=== PATIENT | female | born 1960 | race African-American/Black ===

== ENCOUNTER 2016-08-30 11:00 | Inpatient (IN) | payer OTHER ==
--- NOTE | ~2016-08-30 | PN ---
Unit #: [id number] #: [id number] Patient: OSMANY EDWARDS [id number] [facility] [address] [place] [address] [id number] I MR#: [id number] NAME: OSMANY EDWARDS ROOM: [facility] Age: 56 Sex: F Admission Date: 08/30/2016 : 1960 Attending Physician: Laverne Pope M.D. Admitting Physician: Laverne Pope M.D. Primary Care Physician: Adela Nieto PROGRESS NOTES DATE OF SERVICE 09/06/2016 DISCUSSION Ms. Edwards is a 56-year-old female with mood disorder who was seen today. Chart was reviewed and case was discussed with staff. She has been anxious, withdrawn, depressed, and rather seclusive to himself. Meanwhile, she has been cooperative with the treatment recommendations and has been taking the medications and tolerating them fairly well with no reported side effects. MENTAL STATUS EXAMINATION Middle-aged female who is casually dressed with fair personal hygiene, appears to be in no acute distress or discomfort. She was awake and alert with impaired attention and concentration. Her mood is anxious and depressed with congruent affect. She reports having suicidal ideation and denies any intent or plan. Her insight and judgment remain significantly impaired. TREATMENT PLAN 1. We will continue her on her current medications and treatment protocol. We will monitor her response to the medications and make further adjustments as needed. 2. We will continue to follow up. Dictated by... Adela Lewis/crystal TD: 09/06/2016 11:58 JOB #: [id number] Unit #: [id number] #: [id number] Patient: OSMANY EDWARDS PROGRESS NOTES Page 1 of 1 X Laverne Pope MD PROGRESS NOTE
--- NOTE | ~2016-08-30 | CO ---
Unit #: [id number] #: [id number] Patient: OSMANY EDWARDS [id number] [place] [address] [id number] I MR#: [id number] NAME: OSMANY EDWARDS ROOM: [facility] Age: 56 Sex: F Admission Date: 08/30/2016 : 1960 Attending Physician: Laverne Pope M.D. Primary Care Physician: Jose Ashton M.D. Consultation Date: 08/31/2016 CONSULTATION REPORT HISTORY OF PRESENT ILLNESS Osmany reports that she was admitted [facility] with elevated Coumadin levels. Per staff report, her INR upon admission there was 14. Prior to discharge, her INR was down to 1.19. She reports that she did not realize she was taking warfarin still. The medication had been stopped after her hip surgery, but somehow she has continued to take it without having any of her levels checked. She had some bleeding and low hemoglobin at [facility]. Those records are currently unavailable. She also has complaints of COPD and typically takes Symbicort at home, however, has not been receiving that here and she would like to have that ordered as well. She also would like to have her pain medication increased to q.6 hours that she reports is how she takes it at home; however, per pharmacy, she is only getting this q.6 hours and that is how she is scheduled here. She has no other complaints. PHYSICAL EXAMINATION CARDIAC: Regular rate and rhythm. No murmur, gallop, or rub. RESPIRATORY: Clear to auscultation bilaterally. ASSESSMENT AND PLAN 1. Coumadin toxicity per report from hospital. INR upon admission was 14 and prior to discharge from [facility] had dropped to 1.19. Unknown hemoglobin due to results unavailable. Please request lab results and all pertinent information from [facility]. We will repeat a CBC and PT/INR in the morning. 2. Chronic obstructive pulmonary disease. We will add Symbicort 160/4.5 mcg inhaled 2 puffs q.12 hours. 3. Chronic pain. The patient is currently being prescribed oxycodone IR 10 mg p.o. q.8 hours p.r.n. for pain. At this time, I see no indication to increase this dose. This is what was verified with [facility] pharmacy. Dictated by... Chaya Herman A.P.R.N. for Adela Zapata/mj TD: 08/31/2016 23:29 JOB #: [id number] Unit #: [id number] #: [id number] Patient: OSMANY EDWARDS CONSULTATION REPORT Page 1 of 1 X CHAYA GARZA APRN CONSULTATION REPORT
--- NOTE | ~2016-08-30 | PN ---
Unit #: [id number] #: [id number] Patient: OSMANY EDWARDS [id number] [facility] [address] [place] [address] [id number] I MR#: [id number] NAME: OSMANY EDWARDS ROOM: [facility] Age: 56 Sex: F Admission Date: 08/30/2016 : 1960 Attending Physician: Laverne Pope M.D. Admitting Physician: Laverne Pope M.D. Primary Care Physician: Adela Nieto PROGRESS NOTES DATE September 09, 2016 DISCUSSION Ms. Edwards is a 56-year-old female, with mood disorder, who was seen today and chart was reviewed and the case was discussed with the staff. The patient has been anxious, withdrawn, and rather seclusive to herself. Meanwhile, she has been cooperative with the treatment recommendations and she has been taking the medications and tolerating them fairly well with no reported side effects. MENTAL STATUS EXAMINATION Middle-aged female, who was casually dressed with fair personal hygiene and appears to be in no acute distress or discomfort. The patient was awake and alert with impaired attention and concentration. Her mood was anxious with a congruent affect. The patient denies any suicidal or homicidal ideations. Her insight and judgment remain slightly impaired. TREATMENT PLAN 1. We will continue her on her current medications and treatment protocol, and will monitor her response to the medications, and make further adjustments as needed. 2. We will continue to followup. Dictated by... Adela Lewis/ramesh TD: 09/10/2016 07:13 JOB #: [id number] Unit #: [id number] #: [id number] Patient: OSMANY EDWARDS PROGRESS NOTES Page 1 of 1 X Laverne Pope MD PROGRESS NOTE
--- NOTE | ~2016-08-30 | PN ---
Unit #: [id number] #: [id number] Patient: OSMANY EDWARDS [id number] [facility] [address] [place] [address] [id number] I MR#: [id number] NAME: OSMANY EDWARDS ROOM: [facility] Age: 56 Sex: F Admission Date: 08/30/2016 : 1960 Attending Physician: Laverne Pope M.D. Admitting Physician: Lavrene Pope M.D. Primary Care Physician: Adela Nieto PROGRESS NOTES DATE September 07, 2016 DISCUSSION Ms. Edwards is a 56-year-old female, who was seen today and chart was reviewed and the case was discussed with the staff. She was up early this morning, stating that her blood pressure has been high and the staff informed me that she has been having increasing elevation in blood pressure that is not responding to the clonidine and another dose of clonidine that was given earlier, as her systolic and diastolic blood pressure was extremely high, at the same time the patient does not appear to be showing much restraints on her diet and has been asking for extra snacks and has been eating high salt and high sugar stuff despite being hypertensive and diabetic. MENTAL STATUS EXAMINATION Middle-aged female, who was casually dressed with fair personal hygiene and appears to be in no acute distress or discomfort. She was awake and alert with impaired attention and concentration. Her mood is anxious and depressed with a congruent affect. Her speech is slow and restricted in content. The patient reports having suicidal ideation but denies any homicidal ideations. Her insight and judgment remain slightly impaired. TREATMENT PLAN 1. We will continue her on her current medications and treatment protocol, and will monitor her response to the medications, and make further adjustments as needed. 2. We will continue to followup. Dictated by... Adela Lewis/ramesh TD: 09/07/2016 11:53 JOB #: [id number] Unit #: [id number] #: [id number] Patient: OSMANY EDWARDS PROGRESS NOTES Page 1 of 1 X Laverne Pope MD PROGRESS NOTE
--- NOTE | ~2016-08-30 | CO ---
Unit #: [id number] #: [id number] Patient: OSMANY EDWARDS [id number] [place] [address] [id number] I MR#: [id number] NAME: OSMANY EDWARDS ROOM: [facility] Age: 56 Sex: F Admission Date: 08/30/2016 : 1960 Attending Physician: Laverne Pope M.D. Primary Care Physician: Jose Ashton M.D. Consultation Date: 09/05/2016 CONSULTATION REPORT SUBJECTIVE Osmany is a 56-year-old with history of high blood pressure, alcohol abuse, and COPD. Since admission, she has developed some pedal edema. She denies any chest pain, irregular heart beats, or shortness of breath. We have been asked to assess and treat. Osmany lives a very sedentary life. Most of her days are she goes from the bed to a wheelchair and is sitting in the wheelchair in the day room most of the day. OBJECTIVE GENERAL: Alert, obese, no apparent distress. VITAL SIGNS: Blood pressure 152/103, 163/107, 166/100; heart rate 94, 82, 95, 107; respirations 16, temperature 98.6. CARDIOVASCULAR: Rate and rhythm is regular. No S3. CHEST: Lungs clear. ABDOMEN: Obese, soft, nontender. EXTREMITIES: 2+ pitting edema up to her knees. ASSESSMENT 1. High blood pressure, not controlled. 2. Dependent edema. PLAN 1. Lasix 20 mg one p.o. b.i.d. x3 days and will reassess at that time. 2. Add Norvasc 5 mg one p.o. daily. Note, blood pressures were reassessed 72 hours after initiation of Norvasc. Pressures were still very elevated. We added Toprol-XL 50 mg daily and hydrochlorothiazide 25 mg one p.o. daily. She is to continue Catapres 0.1 mg b.i.d., and lisinopril 20 mg daily. We will continue to monitor. Dictated by... Linda Orozco P.A.-C. for Adela Zapata/mj TD: 09/09/2016 01:48 JOB #: [id number] Unit #: [id number] #: [id number] Patient: OSMANY EDWARDS CONSULTATION REPORT Page 1 of 1 X Linda Orozco CONSULTATION REPORT
--- NOTE | ~2016-08-30 | PN ---
Unit #: [id number] #: [id number] Patient: OSMANY ROMERO [id number] [facility] [address] [place] [address] [id number] I MR#: [id number] NAME: OSMANY ROMERO ROOM: [facility] Age: 56 Sex: F Admission Date: 08/30/2016 : 1960 Attending Physician: Laverne Pope M.D. Admitting Physician: Laverne Pope M.D. Primary Care Physician: Adela Nieto PROGRESS NOTES DATE OF SERVICE 08/30/2016 DISCUSSION Ms. Romero is a 56-year-old female who was seen today. Chart was reviewed and case was discussed with the staff. She has been anxious, withdrawn, and rather seclusive to herself. Meanwhile, she has been cooperative with the treatment recommendations and has been taking the medications and tolerating them fairly well with no reported side effects. MENTAL STATUS EXAMINATION Middle-aged female who is casually dressed with fair personal hygiene, appears to be in no acute distress or discomfort. She was awake and alert with impaired attention and concentration. Her mood is anxious with congruent affect. She denies any suicidal or homicidal ideations and also denies any auditory or visual hallucinations. Her insight and judgment remain slightly impaired. TREATMENT PLAN 1. We will continue her on her current medications and treatment protocol. We will monitor her response and make further adjustments as needed. 2. We will continue to follow up. Dictated by... Laverne Pope M.D. IAA/bzg TD: 09/04/2016 12:41 JOB #: [id number] Unit #: [id number] #: [id number] Patient: OSMANY ROMERO PROGRESS NOTES Page 1 of 1 X Laverne Pope MD PROGRESS NOTE
--- NOTE | ~2016-08-30 | HP ---
Unit #: [id number] #: [id number] Patient: OSMANY EDWARDS [id number] [place] [address] [id number] MR#: [id number] NAME: OSMANY EDWARDS ROOM: [facility] Age: 56 Sex: F Admission Date: 08/30/2016 : 1960 Attending Physician: Laverne Pope M.D. Admitting Physician: Laverne Pope M.D. Primary Care Physician: Jose Ashton M.D. HISTORY AND PHYSICAL HISTORY OF PRESENT ILLNESS Osmany is a 56-year-old female admitted on 08/30/2016 to [facility] for detox from alcohol. PAST MEDICAL HISTORY 1. COPD. 2. Hypertension. 3. Type 2 diabetes. 4. Obesity. 5. Hyperlipidemia. 6. Spinal stenosis. 7. Chronic hip pain. 8. Chronic pancreatitis. 9. Cirrhosis of the liver. 10. Gout. 11. Hepatitis B. 12. Current bleeding ulcers. 13. Anemia. PAST SURGICAL HISTORY 1. Left hip replacement. 2. Right hip fracture surgical repair with rods and screws. 3. Appendectomy. 4. Cholecystectomy. 5. Left oophorectomy. 6. section. 7. Breast biopsy. 8. Colonoscopy. ALLERGIES No known drug allergies. SOCIAL HISTORY Smokes 1 pack of cigarettes daily. Binge alcohol use. Denies illegal drug use. She is currently single and homeless. FAMILY HISTORY Noncontributory. REVIEW OF SYSTEMS CONSTITUTIONAL: No fever or chills. HEENT: Denies any sore throat, ear pain or runny nose. CARDIOVASCULAR: Denies chest pain, irregular heart rhythm or palpitations. Unit #: [id number] #: [id number] Patient: OSMANY EDWARDS CHEST: Denies shortness of breath or cough. No hemoptysis. GASTROINTESTINAL: Denies nausea, vomiting, diarrhea or chronic constipation. ENDOCRINE: Denies history of increased thirst or urination. No recent significant weight loss or gain. GENITOURINARY: Denies dysuria, frequency, or hematuria. SKIN: Denies any rashes. HEMATOLOGIC: Denies history of increased bleeding or bruising. MUSCULOSKELETAL: Denies any hot, swollen joints. No generalized muscle pain. NEUROLOGIC: Denies problems with vision or speech. No frequent, severe headaches. No numbness, tingling or weakness in any extremities. Denies loss of bladder or bowel control. CURRENT MEDICATIONS 1. Folic acid. 2. Protonix. 3. Doxepin. 4. Docusate. 5. Nadolol. 6. Neurontin. 7. Reglan. 8. Oxycodone. 9. Albuterol nebulizer. PHYSICAL EXAMINATION GENERAL: Alert, oriented, in no acute distress. VITAL SIGNS: Blood pressure 169/97, heart rate 64, respirations 24, temperature 98.0. HEIGHT: 5 feet 5. WEIGHT: 195 pounds. SKIN: Warm and dry without rash or lesion. HEENT: Normocephalic. TMs not viewed. Oral and nasal passages clear. Conjunctivae clear. PERRLA. EOMs intact. NECK: Supple without lymphadenopathy or thyromegaly. HEART: Regular rate and rhythm without murmur. LUNGS: Clear. ABDOMEN: Soft, nontender, without masses or hepatosplenomegaly. : Not done. EXTREMITIES: No evidence of cyanosis, clubbing or edema. Moves all without focal deficit. NEUROLOGICAL: Grossly within normal limits. Cranial Nerves: II: Visual dejesus are intact. III, IV AND : Extraocular movements are intact. Pupils are equal, round and reactive to light. V: Facial sensation is grossly normal. VII: Facial movements and expression are normal. VIII: Auditory acuity grossly intact. IX, X: Uvula is midline. Phonation is normal. XI: Patient shrugs shoulders and turns head normally. XII: Tongue protrudes in the midline. Sensory and Motor Function: Sensory and motor sensation is grossly normal. Motor: moves all extremities well. Coordination: Gait is normal. Deep Tendon Reflexes: Intact. IMPRESSION 1. Psychiatric admission. 2. Chronic obstructive pulmonary disease. 3. Hypertension. 4. Type 2 diabetes. Unit #: [id number] #: [id number] Patient: OSMANY EDWARDS 5. Obesity. 6. Hyperlipidemia. 7. Spinal stenosis. 8. Chronic hip pain. 9. Hepatitis B. 10. Cirrhosis of the liver. 11. Chronic pancreatitis. 12. Gout. 13. Current bleeding ulcers. 14. Chronic anemia. RECOMMENDATIONS PSYCHIATRIC: Per psychiatrist. MEDICAL: No contraindications to participate in facility's activities. MEDICAL PROGNOSIS Good. MEDICAL CONDITION Stable. Dictated by... Zach Evangelista/krystyna TD: 08/31/2016 17:28 JOB #: [id number] HISTORY AND PHYSICAL Page 1 of 1 X RENATA GARZA APRN HISTORY AND PHYSICAL
--- NOTE | ~2016-08-30 | PA ---
Unit #: [id number] #: [id number] Patient: OSMANY EDWARDS [id number] [facility] [address] [place] [address] [id number] I MR#: [id number] NAME: OSMANY EDWARDS ROOM: [facility] Age: 56 Sex: F Admission Date: 08/30/2016 : 1960 Date of Assessment: 08/30/2016 Attending Physician: Laverne Pope M.D. Admitting Physician: Laverne Poep M.D. Primary Care Physician: Jose Ashton M.D. PSYCHIATRIC ASSESSMENT DATE OF SERVICE 08/30/2016. IDENTIFYING DATA Ms. Edwards is a 56-year-old single female, who is a resident of [place], [place], and is very well known to us from previous multiple encounters and once again presented back to us from [facility], where she came into the ER due to chest pain and blood in her stool. CHIEF COMPLAINT "I'm depressed and have issues with alcohol." HISTORY OF PRESENT ILLNESS Ms. Edwards is a 56-year-old female, who initially came to the hospital with chest pain and once she was cleared and was ready to be discharged, she informed staff that she is depressed and she has issues with alcohol and that she has intense anxiety and thinks about killing herself and stated that she has considered slitting her wrist and reports that she drinks a fifth or a pint daily and reports that she has been drinking at that level for the past 90 days. However, interestingly, she did not have any withdrawal symptoms in the emergency room and her blood alcohol level was zero and did appear to be manipulating the system and does have a history of such behavior in the past. However, she was exhibiting significant depression and was voicing active suicidal thoughts, intent, and plan and as such, recommendation for inpatient level of care for safety and stabilization was made and the patient was transferred to us. SUBSTANCE ABUSE HISTORY The patient reports history of alcohol dependence and has been drinking since she was 17 years old and reports currently drinking a fifth to a pint of gin on daily basis. The patient denies any other drug abuse. PAST PSYCHIATRIC HISTORY The patient has had history of numerous and multiple inpatient psychiatric hospitalizations for chemical dependency treatment and psychiatric treatment all over the [facility] and has been into different facilities including [facility], [facility], [facility], [facility], [facility], and [facility], and has history of poor compliance with any treatment recommendations outside of the hospital. Once again has not been compliant with any treatment recommendation and has not seeing a psychiatrist, and is not taking any psychotropic medications. Unit #: [id number] #: [id number] Patient: OSMANY EDWARDS PAST MEDICAL HISTORY The patient's medical history is significant for COPD, diabetes mellitus. PERSONAL AND SOCIAL HISTORY A 56-year-old female, who reports that she is single, unemployed, and lives alone, and has poor social support system. MENTAL STATUS EXAMINATION Middle-aged female, who was casually dressed with fair personal hygiene, appears to be in no acute distress or discomfort. She was awake and alert with impaired attention and concentration. Her mood was anxious with a congruent affect. Her speech was slow and restricted in content. Her thought processes were disorganized with some looseness of associations and flight of ideas. Her insight and judgment remain significantly impaired. DIAGNOSTIC IMPRESSION Psychiatric: Major depressive disorder, recurrent, moderate, without psychotic features; alcohol dependence, moderate. Medical: Chronic obstructive pulmonary disease, diabetes mellitus, alcoholic hepatitis. Stressors: Moderate psychosocial stressors. TREATMENT PLAN 1. The patient has presented with history of mood disorder and substance abuse and has been decompensating and will need inpatient hospitalization for safety and stabilization. We will start her back on her home medications. We will adjust the medications and monitor response. 2. Supportive therapy was provided to the patient. 3. Safe, structured, and nourishing environment will be reported. ESTIMATED LENGTH OF STAY 5 to 7 days. ABILITY TO HELP SELF Limited. WILLINGNESS TO HELP SELF The patient appears to be willing to help self. STRENGTHS 1. Communicative. 2. Cooperative. PROBLEMS 1. Chronic dysphoric symptoms. 2. Chronic chemical dependency. 3. Poor social support system. DISCHARGE CRITERIA This will be contingent upon the patient's ability to show resolution of her depression (1) Dictated by... Unit #: [id number] #: [id number] Patient: OSMANY EDWARDS Adela Lewis/mj TD: 08/31/2016 07:03 JOB #: [id number] PSYCHIATRIC ASSESSMENT Page 1 of 1 X Laverne Pope MD PSYCHIATRIC ASSESSMENT
--- NOTE | ~2016-08-30 | PN ---
Unit #: [id number] #: [id number] Patient: OSMANY ROMERO [id number] [facility] [address] [place] [address] [id number] I MR#: [id number] NAME: OSMANY ROMERO ROOM: [facility] Age: 56 Sex: F Admission Date: 08/30/2016 : 1960 Attending Physician: Laverne Pope M.D. Admitting Physician: Laverne Pope M.D. Primary Care Physician: Adela Nieto PROGRESS NOTES DATE 09/08/2016 DISCUSSION Ms. Romero is a 56-year-old female who was seen today and chart was reviewed and case was discussed with the staff. She has been anxious, withdrawn though has not shown any agitation, irritability or behavioral problems and has been cooperative with treatment recommendations and taking medications and tolerating them fairly well with no reported side effects. MENTAL STATUS EXAMINATION Middle-aged female who was casually dressed with fair personal hygiene and appears to be in no acute distress or discomfort. She was awake and alert with impaired attention and concentration. Her mood was anxious with congruent affect. Her thought processes were disorganized with some looseness of associations. Her insight and judgement remains significantly impaired. TREATMENT PLAN 1. Will continue on current medications and treatment protocol. Will monitor her response to the medications and make further adjustments as needed. 2. Will continue to follow up. Dictated by... Laverne Pope M.D. IAA/krystyna TD: 09/08/2016 16:38 JOB #: [id number] Unit #: [id number] #: [id number] Patient: OSMANY ROMERO PROGRESS NOTES Page 1 of 1 X Laverne Pope MD PROGRESS NOTE
--- NOTE | ~2016-08-30 | CO ---
Unit #: [id number] #: [id number] Patient: OSMANY EDWARDS [id number] [place] [address] [id number] I MR#: [id number] NAME: OSMANY EDWARDS ROOM: [facility] Age: 56 Sex: F Admission Date: 08/30/2016 : 1960 Attending Physician: Laverne Pope M.D. Primary Care Physician: Jose Ashton M.D. Consultation Date: 09/01/2016 CONSULTATION REPORT HISTORY OF PRESENT ILLNESS Osmany reports that she recently had a hip replacement in June and she has been doing in physical therapy at home. Here, she has an unsteady gait and has been in a wheelchair; however, she would prefer a walker so that she continues to use her hip and progress in her rehab. She also has been itching and would like Benadryl, also has been having some dryness in her eyes. She reports at home, she ambulates with a walker or a cane and does take Benadryl regularly which does not cause her to be tired. She has no other complaints. PHYSICAL EXAMINATION CARDIAC: Regular rate and rhythm. No murmurs, gallops, or rubs. RESPIRATORY: Clear to auscultation bilaterally. MUSCULOSKELETAL: Altered gait due to left hip replacement and right hip injury. ASSESSMENT AND PLAN 1. Left hip replacement. Please provide walker for Osmany to use when ambulating on the unit. 2. Dry itchy skin. We will add Benadryl 25 mg p.o. q.6 hours p.r.n. for itching. 3. Dry eyes. Please provide with artificial tear drops, one drop per eye b.i.d. Dictated by... Chaya Herman A.P.R.N. for Adela Zapata/mj TD: 09/01/2016 23:45 JOB #: [id number] Unit #: [id number] #: [id number] Patient: OSMANY EDWARDS CONSULTATION REPORT Page 1 of 1 X CHAYA GARZA APRN CONSULTATION REPORT
--- NOTE | ~2016-08-30 | PN ---
Unit #: [id number] #: [id number] Patient: OSMANY EDWARDS [id number] [facility] [address] [place] [address] [id number] MR#: [id number] NAME: OSMANY EDWARDS ROOM: [facility] Age: 56 Sex: F Admission Date: 08/30/2016 : 1960 Attending Physician: Laverne Pope M.D. Admitting Physician: Laverne Pope M.D. Primary Care Physician: Adela Nieto PROGRESS NOTES DATE 08/31/2016 DISCUSSION Ms. Edwards is a 56-year-old female who was seen today and chart was reviewed and case was discussed with the staff. She has been anxious, restless, withdrawn, unkempt, disheveled and is distress and discomfort and has been and reports not feeling good and has been complaining of persistent depression, lack of sleep and feelings of hopelessness and helplessness. Meanwhile, she has been taking medications and tolerating them fairly well with no reported side effects. MENTAL STATUS EXAMINATION Middle-aged female who was casually dressed with fair personal hygiene and appears to be in no acute distress or discomfort. She was awake and alert with intact orientation. Her mood was anxious and depressed with a congruent affect. She denies any suicidal or homicidal ideation and also denies any auditory or visual hallucinations. Her insight and judgement remains slightly impaired. TREATMENT PLAN 1. Will continue on current medications and treatment protocol and will monitor her response to medications and make further adjustments as needed. 2. Will continue to follow up. Dictated by... Adela Lewis/krystyna TD: 08/31/2016 15:20 JOB #: [id number] Unit #: [id number] #: [id number] Patient: OSMANY EDWARDS PROGRESS NOTES Page 1 of 1 X Laverne Pope MD PROGRESS NOTE
--- NOTE | ~2016-08-30 | PN ---
Unit #: [id number] #: [id number] Patient: OSMANY EDWARDS [id number] [facility] [address] [place] [address] [id number] MR#: [id number] NAME: OSMANY EDWARDS ROOM: [facility] Age: 56 Sex: F Admission Date: 08/30/2016 : 1960 Attending Physician: Laverne Pope M.D. Admitting Physician: Laverne Pope M.D. Primary Care Physician: Adela Nieto PROGRESS NOTES DATE 09/02/2016 DISCUSSION Ms. Edwards is a 56-year-old female who was seen today and chart was reviewed and case was discussed with the staff. She has been anxious, withdrawn and rather seclusive to herself. Meanwhile, she has been cooperative with treatment recommendations as she has been taking the medications and tolerating them fairly well with no reported side effects. MENTAL STATUS EXAMINATION Middle-aged female who was casually dressed with fair personal hygiene, appears to be in no acute distress or discomfort. She was awake and alert on interaction with intact orientation. Her mood was anxious with congruent affect. She denies any suicidal or homicidal ideations. Her insight and judgement remains slightly impaired. TREATMENT PLAN 1. We will continue her on her current medications and treatment protocol. We will monitor her response to the medication and make further adjustments as needed. 2. We will continue to follow up. Dictated by... Adela Lewis/idalia TD: 09/02/2016 22:41 JOB #: [id number] Unit #: [id number] #: [id number] Patient: OSMANY EDWARDS PROGRESS NOTES Page 1 of 1 X Laverne Pope MD X PROGRESS NOTE
--- NOTE | ~2016-08-30 | PN ---
Unit #: [id number] #: [id number] Patient: OSMANY EDWARDS [id number] [facility] [address] [place] [address] [id number] MR#: [id number] NAME: OSMANY EDWARDS ROOM: [facility] Age: 56 Sex: F Admission Date: 08/30/2016 : 1960 Attending Physician: Laverne Pope M.D. Admitting Physician: Laverne Pope M.D. Primary Care Physician: Adela Nieto PROGRESS NOTES DATE September 05, 2016 DISCUSSION Ms. Edwards is a 56-year-old female, who was seen today and chart was reviewed and the case was discussed with the staff. The patient has been anxious, withdrawn, depressed, and rather seclusive to herself. Meanwhile, she has been cooperative with the treatment recommendations and she has been taking the medications and tolerating them fairly well with no reported side effects. MENTAL STATUS EXAMINATION Middle-aged female, who was casually dressed with fair personal hygiene and appears to be in no acute distress or discomfort. The patient was awake with impaired attention and concentration. Her mood was anxious with a congruent affect. the patient denies any suicidal or homicidal ideations. Her insight and judgment remain slightly impaired. TREATMENT PLAN 1. We will continue her on her current medications and treatment protocol, and will monitor her response to the medications, and make further adjustments as needed. 2. We will continue to followup. Dictated by... Adela Lewis/ramesh TD: 09/05/2016 11:12 JOB #: [id number] Unit #: [id number] #: [id number] Patient: OSMANY EDWARDS PROGRESS NOTES Page 1 of 1 X Laverne Pope MD PROGRESS NOTE
--- NOTE | ~2016-08-30 | PN ---
Unit #: [id number] #: [id number] Patient: OSMANY EDWARDS [id number] [facility] [address] [place] [address] [id number] I MR#: [id number] NAME: OSMANY EDWARDS ROOM: [facility] Age: 56 Sex: F Admission Date: 08/30/2016 : 1960 Attending Physician: Laverne Pope M.D. Admitting Physician: Laverne Pope M.D. Primary Care Physician: Adela Nieto PROGRESS NOTES DATE September 03, 2016 DISCUSSION Ms. Edwards is a 56-year-old female, who was seen today and chart was reviewed and the case was discussed with the staff. She has been anxious, withdrawn, but has not shown any agitation, irritability, and has been cooperative with the treatment recommendations and she has been taking the medications, and tolerating them fairly well with no reported side effects. MENTAL STATUS EXAMINATION Middle-aged female, who was casually dressed with fair personal hygiene and appears to be in no acute distress or discomfort. She was awake and alert on interaction with intact orientation. Her mood was anxious with a congruent affect. The patient denies any suicidal or homicidal ideations. Her insight and judgment remain slightly impaired. TREATMENT PLAN 1. We will continue her on her current medications and treatment protocol, and will monitor her response to the medications, and make further adjustments as needed. 2. We will continue to followup. Dictated by... Adela Lewis/ramesh TD: 09/03/2016 10:44 JOB #: [id number] Unit #: [id number] #: [id number] Patient: OSMANY EDWARDS PROGRESS NOTES Page 1 of 1 X Laverne Pope MD X PROGRESS NOTE
--- NOTE | ~2016-08-30 | DS ---
Unit #: [id number] #: [id number] Patient: OSMANY EDWARDS [id number] [facility] [address] [place] [address] [id number] MR#: [id number] NAME: OSMANY EDWARDS ROOM: 81 Age: 56 Sex: F Admission Date: 08/30/2016 : 1960 Discharge Date: 09/10/2016 Attending Physician: Laverne Pope M.D. Primary Care Physician: Jose Ashton M.D. DISCHARGE SUMMARY IDENTIFYING DATA Ms. Edwards is a 56-year-old -[place] female, who is a resident of [place], [place], and is known to us from previous encounter, was self-referred to the hospital. DISCHARGE DIAGNOSES Psychiatric: Major depressive disorder, recurrent, moderate, without psychotic features; alcohol dependence, moderate. Medical: Diabetes mellitus, hypertension, COPD, dyslipidemia, spinal stenosis, chronic pain, cirrhosis of the liver, gout, and hepatitis B. Stressors: Moderate psychosocial stressors. HISTORY OF PRESENT ILLNESS Ms. Edwards is a 56-year-old female, who initially came to the hospital with chest pain and once she was cleared and was ready to be discharged, she informed staff that she is depressed and she has issues with alcohol and that she has intense anxiety and thinks about killing herself and stated that she has considered slitting her wrist and reports that she drinks a fifth or a pint daily and reports that she has been drinking at that level for the past 90 days. However, interestingly, she did not have any withdrawal symptoms in the emergency room and her blood alcohol level was zero and did appear to be manipulating the system and does have a history of such behavior in the past. However, she was exhibiting significant depression and was voicing active suicidal thoughts, intent, and plan and as such, recommendation for inpatient level of care for safety and stabilization was made and the patient was transferred to us. PAST PSYCHIATRIC HISTORY The patient has had history of numerous and multiple inpatient psychiatric hospitalizations for chemical dependency treatment and psychiatric treatment all over the town and has been into different facilities including [facility], [facility], [facility], [facility], and [facility], and has history of poor compliance with any treatment recommendations outside of the hospital. Once again has not been compliant with any treatment recommendation and has not seeing a psychiatrist, and is not taking any psychotropic medications. PAST MEDICAL HISTORY The patient's medical history is significant for COPD, diabetes mellitus. HOSPITAL COURSE Unit #: [id number] #: [id number] Patient: OSMANY EDWARDS The patient was admitted to the adult psychiatric care unit at [facility] and was oriented to the hospital environment. Routine p.r.n. medications were initiated, and she was started back on her home medications. The patient has been noncompliant with medications. She was taking the medications regularly and was tolerating them fairly well, though was complaining of persistent depressive symptoms and as such, had a rather complicated course of illness, however, she was able to show a fairly decent and therapeutic response with improvement in depression and anxiety and was denying any further suicidal ideations and was not seem to be danger to self or anyone else, and as such, it was decided that she will be discharged home. We will continue with treatment on an outpatient basis. DISCHARGE MEDICATIONS 1. Seroquel 200 mg at bedtime for depression. 2. Remeron 7.5 mg at bedtime for depression. 3. Doxepin 100 mg at bedtime for sleep. 4. Norvasc 5 mg in the morning for hypertension. 5. Oretic 25 mg a day for hypertension. 6. Lasix 20 mg a day for hypertension. 7. Toprol-XL 100 mg in the morning for hypertension. DISCHARGE CONDITION Stable. PROGNOSIS Fair. Dictated by... Adela Lewis/mj TD: 09/10/2016 15:43 JOB #: [id number] DISCHARGE SUMMARY Page 1 of 1 X Laverne Pope MD X DISCHARGE SUMMARY
[~2016-08-30 11:00] MED LIST: ALPRAZOLAM PO; APAP325 M1 PO; ASACOL400 MG PO; BENTYL10 M1 PO; CATAPRES0.1 MG PO; CELEXA PO; CENTURY CARDIO1 EACH PO; CLONAZEPAM0.5 MG PO; CREON DR 24,001 EACH PO; DOXEPIN HCL100 MG PO; DOXEPIN HCL50 MG PO; FOLIC ACID1 MG PO; GABAPENTIN800 MG PO; HUMALOG100 U/ML SUBQ; HUMULIN 70100 UNIT/1 SQ; HUMULIN 70100 UNIT/1 SUBQ; HUMULIN 70100 UNITS/ SUBQ; HYDROCODON-ACE1 EAC5 PO; HYDROCODONE-A1 UDTA2 PO; HYDROCODONE-APA1 T54 PO; HYDROCODONE/APA1 T16 PO; IBUPROFEN800 MG PO; IPRAT-ALBUT 0.5-3 ML IH; KLONOPIN0.5 MG PO; KRISTALOSE20 G/PK1 PO; LASIX20 MG PO; LEVEMIR SUBQ; LEVEMIR100 UNITS/ SUBQ; LIBRIUM25 M1 PO; LISINOPRIL20 MG PO; LOPRESSOR PO; LORTAB 10-3251 EACH PO; LORTAB 7.5-5001 TAB PO; LOTREL 10-20 MG1 CAP PO; LOTREL PO; MAG-OX 400400 MG PO; METFORMIN HCL500 M1 PO; METOPROLOL TAR25 MG PO; NADOLOL40 MG PO; NEURONTIN800 MG DOB; NEURONTIN800 MG PO; NICOTINE TRANSD14 MG TD; NORCO 10/325 TA1 TAB PO; NORCO 10/3251 TAB PO; OMEPRAZOLE20 M2 PO; ONE DAILY1 TA1 PO; PROTONIX PO; PROTONIX20 MG PO; QUETIAPINE FUM400 MG PO; REMERON15 MG PO; SEROQUEL PO; SEROQUEL400 MG PO; THERAPEUTIC-M1 EAC2 PO; THIAMINE HCL100 M1 PO; TRAZODONE HCL100 MG PO; XANAX0.5 MG PO; [UNRECOGNIZED DRUG - OTHER]
[2016-08-31 10:53] LABS: URINE APPEARANCE CLEAR; URINE BILIRUBIN NEG (NEG); URINE BLOOD NEG (NEG); URINE COLOR YELLOW; URINE GLUCOSE NEG (NEG); URINE KETONE NEG (NEG); URINE LEUKOCYTE ESTERASE NEG (NEG); URINE NITRATE NEG (NEG); URINE PROTEIN NEG (NEG)
[2016-08-31 11:08] LABS: AMPHETAMINE NEG (NEG); BARBITURATES NEG (NEG); BENZODIAZEPINES POS (NEG); COCAINE NEG (NEG); MARIJUANA NEG (NEG); OPIATES NEG (NEG); TRICYCLIC ANTIDEPRESSANTS POS (NEG); U METHADONE NEG (NEG)
[2016-09-07 10:20] LABS: BUN/CREATININE RATIO 21.42; CALCIUM SERUM 9.1 mg/dL (8.4-10.2); CREATININE SERUM 0.7 mg/dL (0.6-1.4); GLOM FILT RATE Estimated 111.5 mL/min (>60); POTASSIUM 4.7 mmol/L (3.5-5.1)
== END 2016-09-10 10:40 | disposition home or self-care (01) | DRG 885 ==
LOC: P1E 16:42
PROVIDERS: Physician Assistant Medical; Psychiatry & Neurology Psychiatry
PROC: HZ2ZZZZ Detoxification Services for Substance Abuse Treatment (ICD-10-PCS; principal; 2016-08-31)
DX: F33.1 Major depressive disorder, recurrent, moderate (principal); K74.60 Unspecified cirrhosis of liver; B19.10 Unspecified viral hepatitis B without hepatic coma; F10.20 Alcohol dependence, uncomplicated; E11.9 Type 2 diabetes mellitus without complications; I10 Essential (primary) hypertension; J44.9 Chronic obstructive pulmonary disease, unspecified; E78.5 Hyperlipidemia, unspecified; M48.00 Spinal stenosis, site unspecified; G89.29 Other chronic pain; M10.9 Gout, unspecified; R60.9 Edema, unspecified; Z96.642 Presence of left artificial hip joint; H04.123 Dry eye syndrome of bilateral lacrimal glands; L85.3 Xerosis cutis
CPT/HCPCS: 80048; 80307; 81003; 82947

== ENCOUNTER 2016-09-26 21:00 | Inpatient (IN) | payer OTHER ==
[~2016-09-26] VITALS: Ht 165.1 cm; Wt 81.6 kg
--- NOTE | ~2016-09-26 | PN ---
Unit #: [id number] #: [id number] Patient: OSMANY EDWARDS [id number] [facility] [address] [place] [address] [id number] I MR#: [id number] NAME: OSMANY EDWARDS ROOM: [facility] Age: 56 Sex: F Admission Date: 09/27/2016 : 1960 Attending Physician: Laverne Pope M.D. Admitting Physician: Laverne Pope M.D. Primary Care Physician: Adela Nieto PROGRESS NOTES DATE OF SERVICE: 09/30/2016 SUBJECTIVE Ms. Edwards is a 56-year-old white female, who was seen today and chart was reviewed, and case was discussed with the staff. She has been anxious, withdrawn, depressed, and rather seclusive to herself. Meanwhile, she has been cooperative with treatment recommendations and has been taking the medications and tolerating them fairly well with no reported side effects. MENTAL STATUS EXAMINATION Middle-aged female, who was casually dressed with fair personal hygiene, appears to be in no acute distress or discomfort. She was awake and alert with impaired attention and concentration. Her mood was anxious with a congruent affect. She denies any suicidal or homicidal ideations. Her insight and judgment remain slightly impaired. TREATMENT PLAN 1. We will continue on her current medications and treatment protocol. We will monitor her response to the medications and make further adjustments as needed. 2. We will continue to follow up. Dictated by... Adela Lewis/mj TD: 09/30/2016 13:52 JOB #: [id number] [facility] PROGRESS NOTES Page 1 of 1 X Laverne Pope MD PROGRESS NOTE
--- NOTE | ~2016-09-26 | PA ---
Unit #: [id number] #: [id number] Patient: OSMANY ROMERO [id number] [facility] [address] [place] [address] [id number] I MR#: [id number] NAME: OSMANY ROMERO ROOM: [facility] Age: 56 Sex: F Admission Date: 09/27/2016 : 1960 Date of Assessment: 09/27/2016 Attending Physician: Laverne Pope M.D. Admitting Physician: Laverne Pope M.D. Primary Care Physician: Jose Ashton M.D. PSYCHIATRIC ASSESSMENT DATE OF SERVICE 09/27/2016. IDENTIFYING DATA Ms. Romero is a 56-year-old single disabled female, who is very well known to us from previous multiple encounters and was just discharged from my care 2-1/2 weeks ago and now brought herself back to the hospital on a voluntary basis. CHIEF COMPLAINT "I'm feeling suicidal, I'm thinking about overdosing or cutting my wrist." HISTORY OF PRESENT ILLNESS Ms. Romero is a 56-year-old female with history of mood disorder and alcohol dependence, who was self-referred to the hospital reporting that she has been depressed and has been having suicidal thoughts and has been thinking about overdosing or cutting her wrist and reports that she has been drinking a fifth of liquor on a daily basis and that when she drinks, she starts thinking crazy and just wants to give up and reports that she wants to detox and wants to give up and does report increasing depression, anxiety, feelings of hopelessness and helplessness, and suicidal ideations and as such, a recommendation for inpatient level of care for safety and stabilization was made and the patient was transferred to us. SUBSTANCE ABUSE HISTORY The patient reports long history of alcohol dependence stating that she has been drinking ever since she was 17 years old, and currently, has been drinking a fifth of alcohol on a daily basis and denies any other substance abuse issues. PAST PSYCHIATRIC HISTORY The patient has a history of multiple and numerous inpatient psychiatric hospitalizations across different facilities including Our , [facility], [facility], [facility], [facility], and [facility] and has been diagnosed and treated for mood disorder and substance abuse and has history of poor compliance with outpatient treatment recommendation and she has not been seeing a psychiatrist and is not taking any psychotropic medications. PAST MEDICAL HISTORY The patient's medical history is significant for hypertension and COPD. Unit #: [id number] #: [id number] Patient: OSMANY ROMERO ALLERGIES No known medication allergies. PERSONAL AND SOCIAL HISTORY A 56-year-old female, who reports that she is single, unemployed, and lives with her family and has poor social support system. MENTAL STATUS EXAMINATION Middle-aged female, who was casually dressed with fair personal hygiene, appears to be in no acute distress or discomfort. She was awake and alert with impaired attention and concentration. Her mood was anxious and depressed with a congruent affect. Her speech was slow and goal directed. She reports having suicidal ideations, but denies any homicidal ideations and also denies any auditory or visual hallucinations. Her insight and judgment remain significantly impaired. DIAGNOSTIC IMPRESSION Psychiatric: Major depressive disorder, recurrent, moderate, without psychotic features and alcohol dependence, moderate. Medical: Hypertension, chronic obstructive pulmonary disease, and diabetes mellitus. Stressors: Moderate psychosocial stressors. TREATMENT PLAN 1. The patient has presented with a history of mood disorder and substance abuse and has been decompensating and will need inpatient hospitalization for safety and stabilization. We will start her back on her home medications. We will adjust the medications and monitor response. 2. Supportive therapy was provided to the patient. 3. Safe, structured, and nourishing environment will be provided. ESTIMATED LENGTH OF STAY 4 to 5 days. ABILITY TO HELP SELF Limited. WILLINGNESS TO HELP SELF The patient appears to be willing to help self. STRENGTHS 1. Communicative. 2. Cooperative. PROBLEMS 1. Chronic dysphoric symptoms. 2. Poor social support system. DISCHARGE CRITERIA This will be contingent upon the patient's ability to show resolution of her depression and anxiety and her ability to stay safe to herself, particularly after discharge from the hospital. Dictated by... Laverne Pope M.D. Unit #: [id number] #: [id number] Patient: OSMANY ROMERO IAA/modl TD: 09/27/2016 14:12 JOB #: [id number] PSYCHIATRIC ASSESSMENT Page 1 of 1 X Laverne Pope MD X PSYCHIATRIC ASSESSMENT
--- NOTE | ~2016-09-26 | PN ---
Unit #: [id number] #: [id number] Patient: OSMANY EDWARDS [id number] [facility] [address] [place] [address] [id number] I MR#: [id number] NAME: OSMANY EDWARDS ROOM: 80 Age: 56 Sex: F Admission Date: 09/27/2016 : 1960 Attending Physician: Laverne Pope M.D. Admitting Physician: Laverne Pope M.D. Primary Care Physician: Adela Nieto PROGRESS NOTES DATE OF SERVICE: 09/29/2016 SUBJECTIVE Ms. Edwards is a 56-year-old female who was seen today and chart was reviewed, and case was discussed with the staff. She remains anxious, withdrawn, depressed, and rather seclusive to herself. Meanwhile, she has been cooperative with treatment recommendations and has been taking medications and tolerating them fairly well with no reported side effects. MENTAL STATUS EXAMINATION Middle-aged female who was casually dressed with fair personal hygiene, appears to be in no acute distress or discomfort. She was awake and alert on interaction with intact orientation. Her mood was anxious and depressed with a congruent affect. Her speech was slow and restricted in content. She reports having suicidal ideations, but denies any homicidal ideations. Her insight and judgment remain significantly impaired. TREATMENT PLAN 1. We will continue her current medications and treatment protocol. We will monitor her response to medications and make further adjustments as needed. 2. We will continue to follow up. Dictated by... Adela Lewis/mj TD: 09/29/2016 16:04 JOB #: [id number] Unit #: [id number] #: [id number] Patient: OSMANY EDWARDS PROGRESS NOTES Page 1 of 1 X Laverne Pope MD PROGRESS NOTE
--- NOTE | ~2016-09-26 | PN ---
Unit #: [id number] #: [id number] Patient: OSMANY EDWARDS [id number] [facility] [address] [place] [address] [id number] MR#: [id number] NAME: OSMANY EDWARDS ROOM: [facility] Age: 56 Sex: F Admission Date: 09/27/2016 : 1960 Attending Physician: Laverne Pope M.D. Admitting Physician: Laverne Pope M.D. Primary Care Physician: Adela Nieto PROGRESS NOTES DATE OF SERVICE: 10/01/2016 SUBJECTIVE Ms. Edwards is a 56-year-old female, who was seen today and chart was reviewed, and case was discussed with the staff. She has been anxious, withdrawn, and rather seclusive to herself. Meanwhile, she has been cooperative with treatment recommendations and has been taking the medications and tolerating them fairly well. MENTAL STATUS EXAMINATION Middle-aged female who was casually dressed with fair personal hygiene, appears to be in no acute distress or discomfort. She was awake and alert with impaired attention and concentration. Her mood was anxious and depressed with a congruent affect. Her speech was slow and goal directed. She denies any suicidal or homicidal ideations. Her insight and judgment remain slightly impaired. TREATMENT PLAN 1. We will continue on her current medications and treatment protocol. We will monitor her response to the medications and make further adjustments as needed. 2. We will continue to follow up. Dictated by... Adela Lewis/mj TD: 10/01/2016 23:35 [facility] #: [id number] [facility] Page 1 of 1 X Laverne Pope MD X PROGRESS NOTE
--- NOTE | ~2016-09-26 | PN ---
Unit #: [id number] #: [id number] Patient: OSMANY EDWARDS [id number] [facility] [address] [place] [address] [id number] MR#: [id number] NAME: OSMANY EDWARDS ROOM: [facility] Age: 56 Sex: F Admission Date: 09/27/2016 : 1960 Attending Physician: Laverne Pope M.D. Admitting Physician: Laverne Pope M.D. Primary Care Physician: Adela Nieto PROGRESS NOTES DATE OF SERVICE 09/28/2016 DISCUSSION Ms. Edwards is a 56-year-old female who was seen today. Chart was reviewed and case was discussed with the staff. She has been anxious, withdrawn, and rather seclusive to herself and reports persistent depressive symptom. Meanwhile, she has been taking the medications and tolerating them fairly well with no reported side effects. MENTAL STATUS EXAMINATION Middle-aged female who is casually dressed with fair personal hygiene, appears to be in no acute distress or discomfort. She was awake and alert on interaction with intact orientation. Her mood is anxious and depressed with congruent affect. She reports having suicidal ideation but denies any homicidal ideations, and also denies any auditory or visual hallucinations. Her insight and judgment remain slightly impaired. TREATMENT PLAN 1. We will continue her on her current medications and treatment protocol. We will monitor her response to the medications and make further adjustments as needed. 2. We will continue to follow up. Dictated by... Adela Lewis/crystal TD: 09/29/2016 07:01 JOB #: [id number] Unit #: [id number] #: [id number] Patient: OSMANY EDWARDS PROGRESS NOTES Page 1 of 1 X Laverne Pope MD PROGRESS NOTE
--- NOTE | ~2016-09-26 | DS ---
Unit #: [id number] #: [id number] Patient: OSMANY ROMERO [id number] [facility] [address] [place] [address] [id number] MR#: [id number] NAME: OSMANY ROMERO ROOM: [facility] Age: 56 Sex: F Admission Date: 09/27/2016 : 1960 Discharge Date: 10/03/2016 Attending Physician: Laverne Pope M.D. Primary Care Physician: Jose Ashton M.D. DISCHARGE SUMMARY IDENTIFYING DATA Ms. Romero is a 56-year-old single, disabled, female, who is very well known to us from previous multiple encounters and was just discharged from my care and was brought back to the hospital on a voluntary basis. DISCHARGE DIAGNOSES Psychiatric: Major depressive disorder, recurrent, moderate, without psychotic features; alcohol dependence, moderate. Medical: Hypertension, chronic obstructive pulmonary disease, and diabetes mellitus. Stressors: Mild psychosocial stressors. HISTORY OF PRESENT ILLNESS Please see initial psychiatric evaluation for details. PAST PSYCHIATRIC HISTORY Please see initial psychiatric evaluation for details. PAST MEDICAL HISTORY Please see initial psychiatric evaluation for details. HOSPITAL COURSE The [facility] and was oriented to the hospital environment. Routine p.r.n. medications were initiated, and she was started back on her home medications and detox protocol was not initiated, even though the patient was wanting to be on Ativan which is typical of med seeking behavior particularly because she just left the hospital not too long ago and has not been gone long enough to qualify for another detox. However, she did not experience any withdrawal symptoms at all and was taking the medications regularly and was tolerating them fairly well and as such, it was decided that she will be discharged home and will continue treatment on an outpatient basis. DISCHARGE CONDITION Stable. PROGNOSIS Fair. Dictated by... Laverne Pope M.D. Unit #: [id number] #: [id number] Patient: OSMANY ROMERO IAA/modl TD: 10/03/2016 06:53 JOB #: [id number] DISCHARGE SUMMARY Page 1 of 1 X Laverne Pope MD DISCHARGE SUMMARY
--- NOTE | ~2016-09-26 | PN ---
Unit #: [id number] #: [id number] Patient: OSMANY EDWARDS [id number] [facility] [address] [place] [address] [id number] MR#: [id number] NAME: OSMANY EDWARDS ROOM: 80 Age: 56 Sex: F Admission Date: 09/27/2016 : 1960 Attending Physician: Laverne Pope M.D. Admitting Physician: Laverne Pope M.D. Primary Care Physician: Adela Nieto PROGRESS NOTES DATE 10/02/2016 DISCUSSION Ms. Edwards is a 56-year-old female who was seen today and chart was reviewed and case was discussed with the staff. She has been anxious, withdrawn and seclusive to herself. Meanwhile, she has been cooperative with treatment recommendations as she has been taking the medications and tolerating them fairly well with no reported side effects. MENTAL STATUS EXAMINATION Middle-aged female who was casually dressed with fair personal hygiene, appears to be in no acute distress or discomfort. She was awake and alert with impaired attention and concentration. Her mood was anxious with congruent affect. She denies any suicidal or homicidal ideations. Her insight and judgement remains slightly impaired. TREATMENT PLAN 1. We will continue her on her current medications and treatment protocol. We will monitor her response to the medication and make further adjustments as needed. 2. We will continue to follow up. Dictated by... Adela Lewis/idalia TD: 10/02/2016 22:06 JOB #: [id number] Unit #: [id number] #: [id number] Patient: OSMANY EDWARDS PROGRESS NOTES Page 1 of 1 X Laverne Pope MD PROGRESS NOTE
--- NOTE | ~2016-09-26 | HP ---
Unit #: [id number] #: [id number] Patient: OSMANY EDWARDS [id number] [facility] [address] [place] [address] [id number] MR#: [id number] NAME: OSMANY EDWARDS ROOM: P180 Age: 56 Sex: F Admission Date: 09/27/2016 : 1960 Attending Physician: Laverne Pope M.D. Admitting Physician: Laverne Pope M.D. Primary Care Physician: Jose Ashton M.D. HISTORY AND PHYSICAL Osmany is a 56-year-old female admitted to [address] [place] [address] on 09/27/2016 for detox from alcohol. She has multiple previous admissions for the same. Recently, she was admitted on 08/30/2016. Reviewed the history and physical from that admission and there are no changes. Dictated by... Zach Evangelista/krystyna TD: 09/27/2016 22:58 JOB #: [id number] HISTORY AND PHYSICAL Page 1 of 1 X RENATA GARZA APRN HISTORY AND PHYSICAL
[2016-09-27 09:42] LABS: URINE APPEARANCE CLOUDY; URINE BLOOD NEG (NEG); URINE COLOR YELLOW; URINE GLUCOSE NORM (NORM); URINE KETONE NEG (NEG); URINE LEUKOCYTE ESTERASE 1+ (NEG); URINE NITRATE NEG (NEG); URINE PROTEIN 1+ (NEG); URINE UROBILINOGEN 4 MG/DL (NORM)
[2016-09-27 09:48] LABS: URINE BILIRUBIN NEG (NEG)
[2016-09-27 10:07] LABS: URBCS1 AUWI 0-2 /[HPF] (0-2); UWBCS1 AUWI 0-2 (0-5)
[2016-09-27 10:08] LABS: URINE BACTERIA AUWI 2+ (NEGATIVE); URINE SQUAMOUS EPITHELIAL CELL MODERATE /[HPF]
[2016-09-27 10:40] LABS: AMPHETAMINE NEG (NEG); BARBITURATES NEG (NEG); BENZODIAZEPINES POS (NEG); COCAINE NEG (NEG); MARIJUANA NEG (NEG); OPIATES NEG (NEG); TRICYCLIC ANTIDEPRESSANTS POS (NEG); U METHADONE NEG (NEG)
[2016-09-28 09:45] LABS: BASOPHIL% 0.6 % (0-2.5); EOSINOPHIL# 0.1 X10e3 (0-0.7); EOSINOPHIL% 1.5 % (0.0-7.0); HEMATOCRIT 35.1 % (35.0-45.0); HEMOGLOBIN 11.1 gm/dL (12.0-16.0); LYMPHOCYTE# 2.2 X10e3 (1.0-3.5); LYMPHOCYTE% 28.9 % (17.0-45.0); MEAN CELL VOLUME 89.9 FL (83-96); MEAN CORPUSCULAR HEMOGLOBIN 28.3 PG (28-34); MEAN CORPUSCULAR HGB CONC 31.5 g/dL (30-36); MEAN PLATELET VOLUME 9.6 FL (6.5-11.5); MONOCYTE# 0.6 X10e3 (0-1.0); MONOCYTE% 8.1 % (3.0-12.0); NEUTROPHIL# 4.7 X10e3 (1.5-7.1); NEUTROPHIL% 60.9 % (40-75); RED BLOOD COUNT 3.91 X10e (3.90-5.30); RED CELL DISTRIBUTION WIDTH 20.6 % (11.0-15.5); WHITE BLOOD COUNT 7.8 X10e3 (4.0-10.5)
[2016-09-28 10:19] LABS: ALBUMIN SERUM 3.9 g/dL (3.5-5.0); BILIRUBIN,TOTAL 1.2 mg/dL (0.2-2.0); BUN/CREATININE RATIO 27.14; CALCIUM SERUM 9.1 mg/dL (8.4-10.2); CREATININE SERUM 0.7 mg/dL (0.6-1.4); GLOM FILT RATE Estimated 111.5 mL/min (>60); POTASSIUM 4.8 mmol/L (3.5-5.1); PROTEIN TOTAL SERUM 8.1 g/dL (6.0-8.3)
[2016-09-28 10:27] LABS: DIFF IND YES; PLATELET COUNT 110 X10e3 (140-420)
[2016-09-28 10:29] LABS: ANISOCYTOSIS MOD; PLATELET ESTIMATE DECREASED (NORMAL)
== END 2016-10-03 14:24 | disposition home or self-care (01) | DRG 885 ==
LOC: P1E 09-27 01:16 → P2S 09-27 01:16 → P1E 09-27 21:45
PROVIDERS: Psychiatry & Neurology Psychiatry
PROC: HZ2ZZZZ Detoxification Services for Substance Abuse Treatment (ICD-10-PCS; principal; 2016-09-27)
DX: F33.1 Major depressive disorder, recurrent, moderate (principal); E11.9 Type 2 diabetes mellitus without complications; I10 Essential (primary) hypertension; F10.20 Alcohol dependence, uncomplicated; J44.9 Chronic obstructive pulmonary disease, unspecified; E78.5 Hyperlipidemia, unspecified; F17.210 Nicotine dependence, cigarettes, uncomplicated; Z96.642 Presence of left artificial hip joint
CPT/HCPCS: 80053; 80307; 81003; 82947; 85025